=== PATIENT | female | born 1955 | race Two or more races ===

== ENCOUNTER 2019-02-27 13:10 | Inpatient (IN) | payer OTHER ==
[~2019-02-27] VITALS: Ht 157.5 cm; Wt 55.3 kg
[~2019-02-27 13:10] MED LIST: LISINOPRIL10 MG PO; TIROSINT75 MCG PO
== END 2019-03-02 17:10 | disposition home or self-care (01) | DRG 735 ==
LOC: O/R 03-01 08:51 → OB/GYN 03-01 08:51 → SURH 03-01 09:39 → OB/GYN 03-01 18:21
PROVIDERS: ADMIT Obstetrics & Gynecology Gynecologic Oncology
PROC: 0UT94ZZ Resection of Uterus, Percutaneous Endoscopic Approach (ICD-10-PCS; 2019-03-01)
PROC: 0UT24ZZ Resection of Bilateral Ovaries, Percutaneous Endoscopic Approach (ICD-10-PCS; 2019-03-01)
PROC: 0UT74ZZ Resection of Bilateral Fallopian Tubes, Percutaneous Endoscopic Approach (ICD-10-PCS; 2019-03-01)
PROC: 07TC4ZZ Resection of Pelvis Lymphatic, Percutaneous Endoscopic Approach (ICD-10-PCS; principal; 2019-03-01 14:30)
DX: C54.1 Malignant neoplasm of endometrium (principal)